=== PATIENT | female | born 1980 | race Native Hawaiian/Other Pacific Islander ===

== ENCOUNTER 2018-01-11 07:38 | Outpatient (CLI) | payer BC | END 2018-01-11 20:09 | disposition home or self-care (01) | LOC: LABW 07:38 | DX: Z32.00 Encounter for pregnancy test, result unknown (principal) | CPT/HCPCS: 36415; 82670; 84144; 84702 ==

== ENCOUNTER 2018-01-15 10:53 | Outpatient (CLI) | payer BC | END 2018-01-15 22:53 | disposition home or self-care (01) | LOC: LABW 10:53 | DX: O09.00 Supervision of pregnancy with history of infertility, unspecified trimester (principal); Z31.49 Encounter for other procreative investigation and testing | CPT/HCPCS: 36415; 84702 ==

== ENCOUNTER 2018-06-15 07:56 | Outpatient (CLI) | payer BC | END 2018-06-15 08:18 | disposition short-term general hospital (02) | LOC: AMB 07:56 | DX: M25.562 Pain in left knee (principal); W18.39XA Other fall on same level, initial encounter; Y92.218 Other school as the place of occurrence of the external cause | CPT/HCPCS: A0425; A0427 ==